=== PATIENT | female | born 1960 | race Caucasian/White ===

== ENCOUNTER → 2016-06-30 | Outpatient (CLI) | payer BC ==
[~2016-06-30] MED LIST: CIPR-280 PO; FENT1PAT66 TD; LETR2.5T4 PO; LISI-621 PO; OMEP20TA24 PO; ONDA-56 PO; OXYC5TAB84 PO; PALB125C PO; PROC25SU32 RECTALLY; SIMV10TA76 PO; [UNRECOGNIZED DRUG - CODE] PO
--- NOTE | 2016-06-30 12:50 | DI ---
Indication: ITS.REASON: M54.2 CERVICALGIA PROCEDURE: CERVICAL SPINE 4 OR 5 VIEWS: Encounter: Initial Comparison: CT cervical spine dated July 12, 2014 Findings: Alignment is straightened with loss of the normal lordosis. Interval postsurgical change with C3 corpectomy and interbody bone graft with anterior fusion plate and screws between C2 and C4. A screw at the C4 level appears to protrude beyond the posterior cortex of the vertebra. No evidence of hardware fracture. Advanced degenerative change again noted at the C5-C6 level with osteophytes. Oblique views show no obvious bony neural foraminal stenosis. Impression: Interval postsurgical change as above. There is apparent extra vertebral extension of a screw at the C4 level. Recommend correlation with the patient's presumed outside imaging studies. CT could be performed for further evaluation. No acute fracture seen. Findings were called to Dr. Whaley's nurse at 1247 on June 30, 2016. .
== END ==
LOC: IMA 12:01
PROVIDERS: ATTEND Family Medicine
DX: M54.2 Cervicalgia (principal); R93.7 Abnormal findings on diagnostic imaging of other parts of musculoskeletal system; Z98.890 Other specified postprocedural states

== ENCOUNTER → 2016-07-03 | Outpatient (CLI) | payer BC ==
--- NOTE | 2016-07-03 10:11 | DI ---
Indication: ITS.REASON: M54.2 CERVICALGIA PROCEDURE: CT CERVICAL SPINE W/O CONTRAST: Encounter: Initial Comparison: Cervical spine radiographs dated June 30, [address] cervical spine dated July 12, 2014 Technique: Axial CT images through the cervical spine were performed without contrast. Coronal and sagittal reformatted images were also obtained. Three-dimensional surface shaded volume rendered imaging was also created and reviewed. Automated Exposure Control and Iterative Reconstruction dose reducing techniques were utilized. FINDINGS: The alignment of the cervical spine is stable with anterior C2-C4 spinal fusion and C3 corpectomy. As noted on the comparison radiographs there is extension of the left C4 screw slightly beyond the posterior margin of the vertebral body into the central spinal canal. This protrudes by approximately 2 mm. There is no evidence of hardware loosening however. No hardware fracture. The screw protrusion does not cause any apparent central canal stenosis. Metallic artifact somewhat limits evaluation of this region. Paraspinal soft tissues show tiny low-attenuation foci in the thyroid gland, probably of no clinical significance. Segmental analysis: C2-C3: No focal disk herniation, central canal or neural foraminal stenosis. C3-C4: Corpectomy. No neural foraminal stenosis. C4-C5: No focal disk herniation, central canal or neural foraminal stenosis. C5-C6: Moderate disk space narrowing with a disk osteophyte complex contributing to mild central canal stenosis. Degenerative uncovertebral changes resulting in mild bilateral neural foraminal stenosis. C6-C7: No focal disk herniation, central canal or neural foraminal stenosis. C7-T1: Normal Impression: 1. Slight protrusion of the left C4 screw into the central canal without evidence of obvious cord impingement or central canal stenosis. No CT evidence of hardware loosening. 2. Moderate degenerative disk disease at the C5-C6 level. .
== END ==
LOC: IMA 09:32
PROVIDERS: ATTEND Family Medicine
DX: M50.322 Other cervical disc degeneration at C5-C6 level (principal); Z98.1 Arthrodesis status

== ENCOUNTER 2017-07-03 13:23 | Observation (INO) ==
[2017-07-03] MEDS ORDERED: ONDANSETRON 4 MG/2 ML INJECTION IVP ONE ×2 (13:51→17:31)
[2017-07-03] MEDS ORDERED: NS 1,000 ML IV ONE ×2 (13:52→17:20)
--- NOTE | 2017-07-03 13:58 | Emergency Department Report ---
Nausea/Vomiting/Diarrhea HPI - General Chief complaint: Nausea/Vomiting/Diarrhea Stated complaint: vomiting, hot/cold flash, cancer Time Seen by Provider: 07/03/17 13:40 Source: patient Mode of arrival: ambulatory Limitations: no limitations - History of Present Illness HPI Narrative: 56 YO WF who presents to ER for nausea and vomiting. Patient reports onset of nausea and vomiting this morning. She reports that she is unable to keep any food or fluids down. Patient has metastatic breast cancer with mets to bone. She is reportedly on oral chemotherapy. Her oncologist is Dr. Bray in [place]. Patient also complains of a headache. Patient denies abdominal pain. MD complaint: nausea, vomiting Onset (ago): hour(s) (6) Associated Abdominal Pain: No - Related Data Home Medications Medication Instructions Recorded Confirmed Omeprazole 20 mg PO DAILY #0 06/06/12 07/03/17 Calcium 600 + D [Caltrate + D] 1 tab PO DAILY 07/03/17 07/03/17 Letrozole 2.5 mg PO DAILY 07/03/17 07/03/17 Magnesium Oxide [Magnesium] 500 mg PO DAILY 07/03/17 07/03/17 Multivit with Calcium,Iron,Min 1 tab PO DAILY 07/03/17 07/03/17 [Multiple Vitamins For Women] Oxycodone *IR* [Roxicodone *Ir*] 5 mg PO Q6HR 07/03/17 07/03/17 Oxycodone CR [Oxycontin] 20 mg PO Q8HR PRN 07/03/17 07/03/17 Palbociclib [Ibrance] 100 mg PO DAILY 07/03/17 07/03/17 Simvastatin [Zocor] 10 mg PO DAILY 07/03/17 07/03/17 Previous Rx's Medication Instructions Recorded Ondansetron [Zofran Odt] 1 tab PO Q6HR PRN #10 tab 07/04/17 Allergies Allergy/AdvReac Type Severity Reaction Status Date / Time Sulfa (Sulfonamide Allergy Unknown Verified 07/03/17 13:35 Antibiotics) fentanyl AdvReac Vomiting Verified 07/03/17 13:36 Review of Systems Constitutional: Reports: chills. Denies: weakness Eyes: Denies: eye pain, eye discharge ENT: Denies: ear pain, throat pain, hearing loss Cardiovascular: Denies: chest pain, palpitations, dyspnea on exertion Respiratory: Denies: cough, dyspnea, wheezes, hemoptysis Gastrointestinal: Reports: nausea, vomiting. Denies: abdominal pain, diarrhea, constipation, hematemesis, melena, hematochezia Genitourinary: Denies: dysuria, frequency, hematuria, discharge Neurological: Reports: headache. Denies: numbness, paresthesias, confusion PFSH Patient Stated Medical History Hypertension Yes Gastroesophageal Reflux Yes Disease Chemotherapy Yes: oral medication Breast cancer with metastases to bone (spine, neck) - Social History Household members: significant other Physical Exam - Limitations Limitations: no limitations - General General appearance: alert - Normal Exams: Head:: Normocephalic without trauma Eyes:: Pupils are PERRLA w/ EOMI, No scleral icterus ENMT:: No facial trauma, nasal exudates, pharyngeal erythema, or exudates are noted Neck:: Full range of motion, without adenopathy, JVD, bruits or thyromegaly Chest/Respirations:: Clear all ly, with good airflow, and symmetry bilaterally Cardiovascular:: Regular rate and rhythm, without murmur or gallop, Pulses 2+ all extremities, capillary refill, <2 seconds all extremities Abdomen:: Bowel sounds positive, soft, non-tender, non-distended Musculoskeletal:: No tenderness, or deformity noted Integumentary:: No rashes, hives, or bruising noted Neurological:: Patient is alert, and oriented, cranial nerves, motor/sensory/ cerebellar, exams w/o gross deficits, to observation Psychiatric:: Patient exhibits, appropriate attention, emotion and affect Course Course Narrative: 1455: IVF INFUSING AT THIS TIME. PATIENT REPORTS THAT PAIN IN HEAD AND NECK "A LITTLE BETTER." SHE REFUSES FURTHER PAIN MEDICATION AT THIS TIME. PATIENT BELIEVES NAUSEA IS BETTER. NO FURTHER NAUSEA MEDICATIONS NEEDED AT THIS TIME. 1549: PATIENT UP TO GIVE URINE SPECIMEN. PATIENT REPORTS INCREASED NAUSEA AND VOMITED SMALL AMOUNT IN EMESIS BAG. PHENERGAN 25 MG IV ORDERED. 1640: PATIENT REPORTS PAIN DECREASED TO 3/10 AND NAUSEA IMPROVED. 1700: PATIENT UP TO AMBULATE WITH NURSING STAFF AND VOMITS. PATIENT SOBBING STATING SHE "CAN'T GO HOME LIKE THIS." CONTACTED HOSPITALIST, DR. ARCHER. DISCUSSED CASE. WILL OBS FOR IV HYDRATION AND ANTI-EMETICS. Vital Signs Temperature 99 F 07/03/17 13:23 Pulse Rate 89 07/03/17 13:23 Respiratory Rate 20 07/03/17 13:23 Blood Pressure 151/70 H 07/03/17 13:23 Pulse Oximetry 98 07/03/17 13:23 Temperature 97.2 F 07/04/17 07:41 Pulse Rate 90 07/04/17 07:41 Respiratory Rate 16 07/04/17 07:41 Blood Pressure 144/83 H 07/04/17 07:41 Pulse Oximetry 99 07/04/17 07:41 Nausea/Vomiting/Diarrhea - Differential Diagnosis Likely: food poisoning, gastroenteritis, drug-induced nausea and vomiting, dehydration - Lab Data Result diagrams: 07/04/17 04:11 07/04/17 04:11 Lab Results 07/03/17 07/03/17 07/03/17 Range/Units 14:22 14:22 15:49 WBC 3.6 L (4.5-11.0) T/MM3 RBC 3.95 L (4.00-5.20) M/MM3 Hgb 13.2 (12-16) GM/DL Hct 39.1 (36-46) % MCV 99.0 (80-100) UM3 MCH 33.4 (26-34) UUG MCHC 33.8 (31-37) GM/DL RDW Std Deviation 47.0 (36.9-50.2) FL Plt Count 161 (130-400) T/MM3 MPV 9.6 (9.4-12.4) UM3 Immature Gran % (Auto) Not performed Neut % (Auto) Not performed Lymph % (Auto) Not performed [place] % (Auto) Not performed Eos % (Auto) Not performed Baso % (Auto) Not performed Neut # (Auto) Not performed Lymph # (Auto) Not performed [place] # (Auto) Not performed Eos # (Auto) Not performed Baso # (Auto) Not performed Abs Immat Gran (auto) Not performed Neutrophils % (Manual) 78.0 H (33-66) % Band Neutrophils % 2.0 (0-6) % Lymphocytes % (Manual) 18.0 L (23-45) % Monocytes % (Manual) 2.0 (0-9.0) % Neutrophils # (Manual) 2.8 (1.8-7.7) T/MM3 Band Neutrophils # 0.1 T/MM3 Lymphocytes # (Manual) 0.6 L (1-4.8) T/MM3 Monocytes # (Manual) 0.1 (0-0.8) T/MM3 RBC Morph Comment Normal Turbidity < 20 (0-20) Sodium 144 (134-144) MEQ/L Potassium 3.9 (3.6-5) MEQ/L Chloride 105 (98-107) MEQ/L Carbon Dioxide 25 (22-30) MEQ/L Anion Gap 14 (5-15) MEQ/L BUN 15.0 (7-17) MG/DL Creatinine 0.6 L (0.7-1.2) mg/dL GFR Calculation 104 BUN/Creatinine Ratio 25 (6-26) RATIO Glucose 141 H (65-110) MG/DL Calculated Osmolality 280 (261-280) MOSM/KG Calcium 9.6 (8.4-10.2) MG/DL Total Bilirubin 0.20 (0.20-1.30) MG/DL Conjugated Bilirubin 0.00 (0.00-0.30) mg/dL Unconjugated Bilirubin 0.00 (0.00-1.1) mg/dL Icterus Index < 2 (0-7) AST 30 (14-36) U/L ALT 28 (1-35) U/L Alkaline Phosphatase 126 (38-126) U/L Total Protein 8.5 H (6.3-8.2) g/dL Albumin 5.1 H (3.5-5.0) g/dL Globulin 3.4 (2.4-3.6) G/DL Albumin/Globulin Ratio 1.5 (1.1-2.2) RATIO Lipase 57 (23-300) U/L Specimen Hemolysis < 15 (0-25) Ur Collection Type Urine, void-cc/notcc Urine Color Yellow (YELLOW) Urine Clarity Sl cloudy Urine pH 7.0 (5.0-8.0) Ur Specific [place] 1.015 (1.015-1.025) Urine Protein Negative (NEGATIVE) Urine Glucose (UA) Negative (NEGATIVE) Urine Ketones Negative (NEGATIVE) Urine Occult Blood Negative (NEGATIVE) Urine Nitrate Negative (NEGATIVE) Urine Bilirubin Negative (NEGATIVE) Urine Urobilinogen 0.2 (NORMAL) EU/DL Ur Leukocyte Esterase Negative (NEGATIVE) Urinalysis Comment Microscopic not ind. Disposition Clinical Impression: Anemia and Syncope Disposition: 02 To OBS [facility] Condition: Stable Time of Disposition: 17:15 - Seen By: physician
[2017-07-03] MEDS: SALINE FLUSH 10ml SYRINGE IVF PRN ×2 (14:26→16:06)
[2017-07-03] MEDS ORDERED: HYDROMORPHONE 2 MG/ML INJECTION IVP ONE ×3 (14:26→15:54)
[2017-07-03] MEDS ORDERED: PROMETHAZINE 25 MG INJECTION IVP ONE (15:48)
[2017-07-03 18:27] VITALS: BMI 26.2
--- NOTE | 2017-07-03 19:26 | History & Physical Report ---
History of Present Illness Date: 07/03/17 Chief complaint: nausea, vomiting and headache HPI: The patient is a pleasant 56-year-old female who complains that she started developing nausea and vomiting this morning around 8 or 8:30 AM. Around that time she also had headache and increased neck pain. She has some chronic neck discomfort from a bulging disc. She also has metastatic breast cancer which has metastasized to the spine. She does not typically have headaches. She presented to the emergency room and underwent lab work including a CBC, comprehensive metabolic profile, lipase and urinalysis which are fairly normal. She has no history of migraines. She is not taking any new medications. She has not had a recent CT of her head. She has no known metastasis to the brain. She denies any history of blood clots. She denies any bleeding problems. Emesis mostly looks like water per the patient. No bright red blood. No coffee ground appearance. She does complain of GERD symptoms she has had in the past. She has some chronic intermittent left arm numbness and tingling over the past few months thought to be secondary to herniated disc in her neck. She denies any other numbness or tingling. She has generalized weakness but no focal weakness. She denies feeling confused. She has some lightheadedness when she stands. She denies spinning or vertigo type symptoms. She does have photophobia. Despite her neck pain, she does not have any neck stiffness. She has had no fevers or chills but does have occasional sweats. No one at home is sick with similar symptoms. She does not have any diarrhea or abdominal pain. The patient presented to the emergency room and was given Zofran, Phenergan and pain medication with some mild improvement in her nausea but she continued to have intermittent emesis. Her headache improved from a 9 down to a 5. Review of Systems Review of systems: Comprehensive review of systems is negative other than the above in history of present illness. Past Medical History Medical History Updates: Breast cancer diagnosed 3 years ago with metastasis to the bones. She is on chemotherapy with Dr. Bray. Bulging disc in the neck. Hepatitis C. Arthritis. Hyperlipidemia Surgical History: "Partial hysterectomy" Family History: No family history of cancer. She does not know her father's medical history or his family's medical history. Family History: As Above - Social History Smoking status: Former smoker Current residence: Apartment/Private Home (she lives at home with her significant other and her children and grandchildren) Medications Home Medications Medication Instructions Recorded Confirmed Type Omeprazole 20 mg PO DAILY #0 06/06/12 07/03/17 History Calcium 600 + D [Caltrate + D] 1 tab PO DAILY 07/03/17 07/03/17 History Letrozole 2.5 mg PO DAILY 07/03/17 07/03/17 History Magnesium Oxide [Magnesium] 500 mg PO DAILY 07/03/17 07/03/17 History Multivit with Calcium,Iron,Min 1 tab PO DAILY 07/03/17 07/03/17 History [Multiple Vitamins For Women] Oxycodone *IR* [Roxicodone *Ir*] 5 mg PO Q6HR 07/03/17 07/03/17 History Oxycodone CR [Oxycontin] 20 mg PO Q8HR PRN 07/03/17 07/03/17 History Palbociclib [Ibrance] 100 mg PO DAILY 07/03/17 07/03/17 History Simvastatin [Zocor] 10 mg PO DAILY 07/03/17 07/03/17 History Allergies Allergy/AdvReac Type Severity Reaction Status Date / Time Sulfa (Sulfonamide Allergy Unknown Verified 07/03/17 13:35 Antibiotics) fentanyl AdvReac Vomiting Verified 07/03/17 13:36 Exam Vital Signs: Temperature 97.2 F 07/03/17 18:24 Pulse Rate 88 07/03/17 18:24 Respiratory Rate 18 07/03/17 18:24 Blood Pressure 155/91 H 07/03/17 18:24 Pulse Oximetry 99 07/03/17 18:24 Height/Weight/BMI: Height 1.65 m Weight 71.4 kg Body Mass Index 26.2 Comments: Temp 97.2, pulse 88, respirations 16, blood pressure 155/91, O2 sat 99% on room air GEN-the patient is a 56-year-old female who is well-developed and well -nourished. She appears in distress secondary to pain and nausea. She prefers to have the lights off. She is a fair historian. She is alert and oriented to , 2018. She states that tomorrow is Easter. HEENT-normocephalic, atraumatic. Pupils are equal round and reactive. Sclerae are anicteric. There is no nystagmus. Oropharynx is moist. NECK-good range of motion of her neck despite neck discomfort. No lymphadenopathy CV-regular rate and rhythm CHEST-clear to auscultation bilaterally ABD-soft, nontender with positive bowel sounds -no St EXT-no edema NEURO-cranial nerves II through XII are grossly intact. Motor strength is 5 over 5 and equal in the upper and lower extremities. No focal deficits appreciated. SKIN-warm and dry and without rashes Results - Labs CBC & Chem 7: 07/03/17 14:22 07/03/17 14:22 Labs: Laboratory Tests 07/03/17 14:22 Calculated Osmolality 280 Calcium 9.6 Total Bilirubin 0.20 AST 30 ALT 28 Alkaline Phosphatase 126 Total Protein 8.5 H Albumin 5.1 H Globulin 3.4 Albumin/Globulin Ratio 1.5 Lipase 57 Urinalysis is essentially normal Assessment and Plan Assessment and Plan: Impression Nausea and vomiting New Onset Headache with worsening neck pain Breast cancer with metastasis to the spine Generalized weakness-no focal deficits on exam Hepatitis C History of herniated disc in the local spine Gastroesophageal reflux disease Plan With the patient's nausea and vomiting associated with new onset headache, worsening neck pain, and known metastatic breast cancer, I'm concerned for possible brain metastasis. Will check CT head without contrast initially. If negative, will likely need MRI. We'll monitor neuro checks. We'll give antiemetics and cautious IV fluids. Recheck CBC and basic metabolic profile in the morning. Continue her home pain medications. We'll give prn morphine if needed DVT Prophylaxis: SCD's GI Prophylaxis: Protonix Resuscitation Status: Full Code - Physician Narrative Physician: Manasa Greene MD Narrative: Date: 07/03/17 Time: 1920 Hospital Course Summary Disclaimer: The visit summary below is not to be considered part of the above Progress Note.
[2017-07-03] MEDS ORDERED: METOCLOPRAMIDE 10mg/2ml INJECTION IVP PRN (19:39)
[2017-07-03] MEDS ORDERED: ONDANSETRON 4 MG/2 ML INJECTION IVP PRN (19:39)
[2017-07-03] MEDS ORDERED: Oxycodone CR 20 MG TABLET PO PRN (19:43)
[2017-07-03] MEDS: NS 1,000 ML IV SCH (19:59)
[2017-07-03] MEDS: PANTOPRAZOLE 40 MG INJECTION IVP SCH (20:31)
[2017-07-03] MEDS: HYDROMORPHONE 2 MG/ML INJECTION IVP PRN (20:32)
[2017-07-03] MEDS: Oxycodone *IR* 5 MG TABLET PO SCH (20:33)
[2017-07-04] MEDS: HYDROMORPHONE 2 MG/ML INJECTION IVP PRN (00:28)
[2017-07-04] MEDS: Oxycodone *IR* 5 MG TABLET PO SCH ×3 (04:16→15:00)
[2017-07-04] MEDS: PANTOPRAZOLE 40 MG INJECTION IVP SCH (09:03)
[2017-07-04] MEDS: NS 1,000 ML IV SCH (09:06)
[2017-07-04 11:05] VITALS: BP 144/83; PULSE 90; RESP 16; TEMP 97.2; O2SAT 99
[2017-07-04] MEDS ORDERED: GADOTERIDOL 279.3mg/ml - 15ml vial IVP ONE (11:17)
[2017-07-04] MEDS ORDERED: SALINE FLUSH 10ml SYRINGE ONE (11:17)
--- NOTE | 2017-07-04 13:15 | Magnetic Resonance Report ---
Indication: headache, known breast ca with spine mets, nausea/emesis PROCEDURE: MR head/brain wo/w con: Encounter: Initial Comparisons: None Technique: Multiplanar, multisequence, MR imaging of the head with and without contrast was acquired. Contrast: 14 mL of ProHance FINDINGS: The ventricles are of normal size, shape, and contour for the patient's age. The brain stem, cerebellum, and cerebral hemispheres have a normal morphologic appearance as well as MR signal intensity on all pulse sequences. Following intravenous administration of contrast, no areas of abnormal enhancement are evident. There are no areas of restricted diffusion to suggest an acute infarct. There is no evidence of an intracranial mass lesion, intracranial hemorrhage, or hydrocephalus. The visualized portions of the orbits, calvarium, paranasal sinuses, and skull base demonstrate no significant abnormality. IMPRESSION: Normal exam .
--- NOTE | 2017-07-04 15:22 | Discharge Summary ---
Discharge Information Date of admission: 07/03/17 17:28 Anticipated date of discharge: 07/04/17 Attending Physician: Manasa Greene MD Primary care physician: Regan Whaley MD Intractable Nausea and vomiting Headache - Laboratory Labs: 07/04/17 04:11 07/04/17 04:11 Laboratory Tests 07/03/17 14:22 Total Bilirubin 0.20 Conjugated Bilirubin 0.00 Unconjugated Bilirubin 0.00 AST 30 ALT 28 Alkaline Phosphatase 126 Total Protein 8.5 H Albumin 5.1 H Globulin 3.4 Albumin/Globulin Ratio 1.5 Lipase 57 - Radiology Radiology: CT head without contrast on 07/03/2017 was normal MRI brain/head with and without contrast was normal on 07/04/2017 History of Present Illness HPI: The patient is a pleasant 56-year-old female who complains that she started developing nausea and vomiting this morning around 8 or 8:30 AM. Around that time she also had headache and increased neck pain. She has some chronic neck discomfort from a bulging disc. She also has metastatic breast cancer which has metastasized to the spine. She does not typically have headaches. She presented to the emergency room and underwent lab work including a CBC, comprehensive metabolic profile, lipase and urinalysis which are fairly normal. She has no history of migraines. She is not taking any new medications. She has not had a recent CT of her head. She has no known metastasis to the brain. She denies any history of blood clots. She denies any bleeding problems. Emesis mostly looks like water per the patient. No bright red blood. No coffee ground appearance. She does complain of GERD symptoms she has had in the past. She has some chronic intermittent left arm numbness and tingling over the past few months thought to be secondary to herniated disc in her neck. She denies any other numbness or tingling. She has generalized weakness but no focal weakness. She denies feeling confused. She has some lightheadedness when she stands. She denies spinning or vertigo type symptoms. She does have photophobia. Despite her neck pain, she does not have any neck stiffness. She has had no fevers or chills but does have occasional sweats. No one at home is sick with similar symptoms. She does not have any diarrhea or abdominal pain. The patient presented to the emergency room and was given Zofran, Phenergan and pain medication with some mild improvement in her nausea but she continued to have intermittent emesis. Her headache improved from a 9 down to a 5. Objective Vital signs: Temperature 97.2 F 07/04/17 07:41 Pulse Rate 90 07/04/17 07:41 Respiratory Rate 16 07/04/17 07:41 Blood Pressure 144/83 H 07/04/17 07:41 Pulse Oximetry 99 07/04/17 07:41 Height/Weight/BMI: Height 1.65 m Weight 69.8 kg Body Mass Index 26.2 Hospital Course This is a general summary of the patient's hospital course. For more details refer to the complete medical record. Hospital course: The patient is a 56-year-old female with breast cancer with metastasis to spine. She developed nausea, vomiting, lightheadedness, mild dizziness and photophobia on the morning of 07/03/2017. She was not able to keep down her antiemetics. She was not able to keep down her other pills either. She presented to the emergency room and was given IV fluids, IV pain medication, and IV antiemetics continued to have nausea. The patient was admitted with intractable nausea and vomiting. A stat CT head was obtained in light of her headache associated with nausea. CT head was normal. Patient was treated with IV fluids, antiemetics and pain medication during the hospital course and by the following morning, headache had resolved and nausea had resolved. MRI brain with and without contrast was obtained and was normal. The patient was able to eat a regular diet. She has had no neurologic symptoms. The mild dizziness she had the morning of admission did not recur. On exam she is alert and oriented and in no acute distress. Neck is supple. Chest is clear to auscultation. Cardiovascular reveals a regular rate and rhythm. Abdomen is soft and nontender. Extremities are free of edema. At this time, the patient appears stable for dismissal to home. She is to follow -up with her primary care physician, Dr. Wright next week. She is to keep her follow-up appointment with her oncologist, Dr. Bray. The etiology of her headache is not known at this time. It could've been a migraine headache, however she has not had history of migraines. She has had intermittent neck pain from a bulging disc. I did recommend that she follow-up with her surgeon regarding her neck pain, as this may have contributed to her headache. Resuscitation Status: Full Code Discharge Plan - Discharge Disposition Discharge Date: 07/04/17 Disposition: Discharged Home, Self-Care *Condition: Stable Reason For Visit (Visit label in EMR): Refractory nausea and vomiting - Discharge Medications *Discharge Medications: New Ondansetron [Zofran Odt] 1 tab PO Q6HR PRN #10 tab PRN Reason: Nausea Continue Omeprazole 20 mg PO DAILY #0 Oxycodone CR [Oxycontin] 20 mg PO Q8HR PRN PRN Reason: Pain Oxycodone *IR* [Roxicodone *Ir*] 5 mg PO Q6HR Letrozole 2.5 mg PO DAILY Simvastatin [Zocor] 10 mg PO DAILY Palbociclib [Ibrance] 100 mg PO DAILY Magnesium Oxide [Magnesium] 500 mg PO DAILY Multivit with Calcium,Iron,Min [Multiple Vitamins For Women] 1 tab PO DAILY Calcium 600 + D [Caltrate + D] 1 tab PO DAILY - Discharge Packet/Instructions *Diet: Diet as tolerated *Activity: Light activity as tolerated *Pain Management/Treatment: Continue your home pain medications. *Wound Care: Not applicable *Expected Signs/Symptoms: Mild neck discomfort from your bulging disc *Notify Physician if: Worsening nausea and vomiting, recurrent severe headaches , worsening neck pain or development of arm weakness *During Business Hours Contact: Call Dr. Whaley's office *After Business Hours Contact: Call [phone] to have your physician paged *Pending Lab/Results: No Pending Lab - Referrals/Follow Up *Referrals/Follow Up: Regan Whaley MD [Family Provider] - 1 Week Abby Bray MD [Physician] - - Patient Handouts - Dismissal Complete Discharge Instructions are:: Complete Physician Narrative - Narrative Attestation Narrative: Date: 07/04/17 Time: 1510
--- NOTE | 2017-07-04 16:11 | CT Scan Report ---
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 Iterative Reconstruction dose reducing technique was utilized. FINDINGS: The ventricles are of normal size, shape, and contour for the patient's age. The brainstem, cerebellum, and cerebral hemispheres have a normal morphology and CT attenuation. There is no evidence of midline displacement. No hemorrhage, signs of acute territorial stroke, mass effect, mass lesions, or edema is evident. The visualized portions of the skull base, midface, and calvarium demonstrate no abnormality. The paranasal sinuses are well aerated and free of significant disease. The tympanic and mastoid cavities appear normal. IMPRESSION: No acute intracranial abnormality or hemorrhage. There is a preliminary report by virtual radiologic. .
[2017-07-04] MEDS ORDERED: SIMVASTATIN 10 MG TABLET PO SCH (21:00)
== END 2017-07-04 16:10 | disposition home or self-care (01) ==
LOC: MED 13:23 → ED 13:23 → MED 18:17
PROVIDERS: ADMIT Internal Medicine; ATTEND Internal Medicine